=== PATIENT | male | born 1940 | race Two or more races ===

== ENCOUNTER 2017-08-07 09:50 | Emergency (ER) | payer OTHER ==
[~2017-08-07] VITALS: Ht 160 cm; Wt 56.2 kg
[2017-08-07 11:28] VITALS: BP 121/68
== END 2017-08-07 11:54 | disposition home or self-care (01) ==
LOC: ER 10:00
DX: S16.1XXA Strain of muscle, fascia and tendon at neck level, initial encounter (principal); R51 Headache; W20.8XXA Other cause of strike by thrown, projected or falling object, initial encounter; Y93.89 Activity, other specified; Y92.89 Other specified places as the place of occurrence of the external cause; Y99.8 Other external cause status
CPT/HCPCS: 70450; 72040; 93005

== ENCOUNTER 2017-08-10 08:38 | Emergency (ER) | payer OTHER ==
[~2017-08-10] VITALS: Ht 160 cm; Wt 55.8 kg
[2017-08-10 09:20] VITALS: BP 142/70
== END 2017-08-10 09:38 | disposition home or self-care (01) ==
LOC: ER 08:38
DX: S09.90XA Unspecified injury of head, initial encounter (principal); W20.8XXA Other cause of strike by thrown, projected or falling object, initial encounter; Y93.89 Activity, other specified; Y92.89 Other specified places as the place of occurrence of the external cause; Y99.8 Other external cause status

== ENCOUNTER 2024-10-10 10:56 | Inpatient (IN) | payer OTHER, MEDICAID ==
[~2024-10-10] VITALS: Ht 158.8 cm; Wt 59.4 kg
--- NOTE | 2024-10-10 12:44 | ED.PDOC ---
SOB-HPI HPI Comments 84-year-old male brought in by EMS from home complaining of generalized we akness. Patient is a difficult historian, stating I do not feel good. He states he was hospitalized in [place] about a month ago with similar symptoms, however can not provide any diagnosis. States for the last month he has had body aches, chills, fever, dry cough and difficulty breathing making it difficult for him to sleep at night. He denies any chest pain, abdominal pain, nausea, vomiting, diarrhea or dysuria. Chief Complaint: General Weakness Time Seen by MD: 11:32 Primary Care Provider: SUSIE Reviewed notes: Nurses Notes Information Source: Patient, Emergency Med Personnel Mode of Arrival: EMS Past Medical History PAST MEDICAL HISTORY: Denies Surgical History: Denies all surgeries Family History Family History: Unknown Social History Smoker: Non-Smoker Alcohol: Denies ETOH Use Drugs: Denies Drug Use Lives In: Home All Other Systems: Reviewed and Negative (Comprehensive systems review obtained and negative except for what is stated in the HPI.) Physical Exam General Appearance: No Apparent Distress HEENT: Other (Unremarkable) Neck: Full Range of Motion, Normal Inspection Respiratory: Decreased Breath Sounds, No Accessory Muscle Use, No Respiratory Distress Cardiovascular: No Edema, No JVD, Regular Rate/Rhythm Breast Exam: Deferred Gastrointestinal: Non Tender, Soft Genitalia: Deferred Pelvic: Deferred Rectal: Deferred Extremities: Normal inspection, Normal range of motion, Non-tender, No pedal edema Neurologic: Alert (Oriented x4), Normal Affect, Normal Mood, Other (Ambulatory. No gross focal deficit.) Cerebellar Function: NOT DONE Reflexes: NOT DONE Skin: Dry, Normal Color, Warm Lymphatic: NOT DONE EKG EKG : Comments Sinus rhythm, rate 77, normal intervals, left axis deviation, normal QRS, nonspecific T changes. Was a procedure done? Was a procedure done?: No Differential Dx Differential Diagnosis: Asthma, Bronchitis, CHF, COPD, Myocardial infarction, Panic Attack, Pneumonia, Pulmonary Embolism, Respiratory Distress, URI X-Ray, Labs, Meds, VS Vital Signs Date Time Temp Pulse Resp B/P (MAP) Pulse Ox O2 Delivery O2 Flow Rate FiO2 10/10/24 17:18 97.7 60 9 121/73 (89) 97 97.7 10/10/24 17:18 60 19 97 Room Air 10/10/24 13:11 89 20 93 Room Air* 0 21 10/10/24 12:54 16 89 Room Air* 0 21 10/10/24 11:05 77 10/10/24 11:04 98.1 92 18 120/73 (89) 99 Lab Test 10/10/24 17:39 10/10/24 17:30 10/10/24 14:30 10/10/24 14:15 Range/Units Lactic Acid Level 3.3 *H 3.8 *H 0.4-2.0 mmol/L Troponin I High Sensitivity 27 30 </=54 ng/L Influenza Type A Antigen Negative Negative Influenza Type B Antigen Negative Negative SARS-CoV-2 Antigen (Rapid) Negative NEGATIVE White Blood Count 9.2 4.4-10.8 10^3/uL Red Blood Count 4.88 4.5-5.90 10^6/uL Hemoglobin 13.3 L 13.5-17.5 g/dL Hematocrit 41.3 41.0-53.0 % Mean Corpuscular Volume 84.6 80.0-100.0 fL Mean Corpuscular Hemoglobin 27.4 L 28.0-32.0 pg Mean Corpuscular Hemoglobin Concent 32.4 32.0-36.0 g/dL Red Cell Distribution Width 15.5 H 11.8-14.3 % Platelet Count 88 L 140-450 10^3/uL Mean Platelet Volume 10.5 6.9-10.8 fL Neutrophils (%) (Auto) 89.2 H 37.0-80.0 % Lymphocytes (%) (Auto) 6.7 L 10.0-50.0 % Monocytes (%) (Auto) 4.0 0.0-12.0 % Eosinophils (%) (Auto) 0.0 0.0-7.0 % Basophils (%) (Auto) 0.1 0.0-2.0 % Neutrophils # (Auto) 8.2 1.6-8.6 10 ^3/uL Lymphocytes # (Auto) 0.6 0.4-5.4 10 ^3/uL Monocytes # (Auto) 0.4 0-1.3 10 ^3/uL Eosinophils # (Auto) 0 0-0.8 10 ^3/uL Basophils # (Auto) 0 0-0.2 10 ^3/uL Nucleated Red Blood Cells 0.1 % Sodium Level 131 L 136-145 mmol/L Potassium Level 3.5 3.5-5.1 mmol/L Chloride Level 97 L 98-107 mmol/L Carbon Dioxide Level 21 20-31 mmol/L Anion Gap 13 5-15 Blood Urea Nitrogen 27 H 9-23 mg/dL Creatinine 1.64 H 0.700-1.30 mg/dL Glomerular Filtration Rate Calc 41 >90 mL/min BUN/Creatinine Ratio 16.5 10.0-20.0 Serum Glucose 219 H 74-106 mg/dL Calcium Level 8.9 8.7-10.4 mg/dL B-Type Natriuretic Peptide 103.87 0-100 pg/mL Current Medications Medications (Trade) Dose Ordered Sig/Sherron Route Start Time Stop Time Status Last Admin Albuterol (Ventolin Medneb) 2.5 mg ONCE ONCE NEB 10/10/24 12:45 10/10/24 12:46 DC 10/10/24 13:06 Ipratropium [place] (Atrovent Medneb) 0.5 mg ONCE ONCE NEB 10/10/24 12:45 10/10/24 12:46 DC 10/10/24 13:06 Ceftriaxone Sodium 50 ml @ 100 mls/hr ONCE ONCE IV 10/10/24 12:45 10/10/24 13:14 DC 10/10/24 13:04 Azithromycin 250 ml @ 125 mls/hr ONCE ONCE IV 10/10/24 12:45 10/10/24 14:44 DC 10/10/24 13:05 Acetaminophen (Tylenol Tablet Or Capsule) 1,000 mg ONCE ONCE PO 10/10/24 12:45 10/10/24 12:46 DC 10/10/24 13:04 Sodium Chloride 1,000 ml @ 1,000 mls/hr Q1H ONCE IV 10/10/24 16:30 10/10/24 17:29 DC 10/10/24 16:33 [place] [id number] Ph: [phone] DIAGNOSTIC IMAGING Diagnostic Imaging Report : [id number] Signed PATIENT: PABLO ANDRES ACCT: [id number] UNIT: [id number] : 1940 LOC: ER ROOM / BED: / AGE / SEX: 84 / M ADM STATUS: REG ER SERVICE 1240 ORDERING PHYSICIAN: JEREMY YOUNG MD PROCEDURE(s): CXRP - CHEST PORTABLE REASON: sob cough fever ORDER NUMBER(s): [id number], ACCESSION NUMBER(s): [id number] XY CHEST PORTABLE, HISTORY: sob cough fever COMPARISON: None None TECHNICAL DATA: 1 view of the chest was obtained. FINDINGS: Lines and tubes: A cardiac pacer is seen. Cardiomediastinal silhouette: normal Pulmonary vasculature: normal Lung expansion: normal Lung airspace: normal Lung interstitium: normal Pleura: normal Pneumothorax: no Bones: Unremarkable Other: no IMPRESSION: No acute intrathoracic abnormality. ATED BY: CHARANJIT SENIOR MD DICTATED DATE/TIME: 10/10/241335 SIGNED BY: CHARANJIT SENIOR MD SIGNED DATE/TIME: 10/10/241335 CC: X-Ray, Labs, Meds, VS Comment 84-year-old male with no significant past medical history brought in by EMS for evaluation of generalized weakness, cough, shortness of breath, body aches, and malaise. Vitals unremarkable Exam remarkable for diminished breath sounds Rhythm strip independently interpreted by me: Sinus rhythm, rate 77, no ectopy. Chest x-ray unremarkable CBC remarkable for platelets of 88 , metabolic panel remarkable for sodium 131, chloride 97, BUN 27, creatinine 1.64, glucose 219, BNP and troponin negative, influenza and COVID negative, lactate 3.8, repeat 3.3 Patient treated with the following in the ED: 1 L 0.9 normal saline IV bolus, Rocephin 1 g IV, Zithromax 500 mg IV albuterol 2.5 mg/Atrovent 0.5 mg nebulized On re-evaluation, patient is resting comfortably with stable vitals. He denies shortness of breath, and oxygen saturation is normal on room air. Plan is to admit the patient for IV hydration, lactate trend, electrolyte correction, and respiratory support as needed Time of 1ST Reevaluation: 14:30 Reevaluation 1ST: Improved Patient Education/Counseling: Diagnosis, Treatment Family Education/Counseling: No Family Present Departure 1 Departure Time of Disposition: 16:16 Impression: Primary Impression: Generalized weakness Additional Impressions: Acute kidney injury Elevated lactic acid level Bronchitis Disposition: 09 ADMITTED INPATIENT Admit to: Med Surg Condition: Guarded Critical Care Note Critical Care Time?: No Stability Stability form required: No Heart Score Heart Score: Heart Score Response (Comments) Value History N/A 0 EKG N/A 0 Age N/A 0 Risk Factors N/A 0 Troponin N/A 0 Total 0 I personally scribed for JEREMY YOUNG MD ([email or web address]) on 10/10/24 at 13:48. Electronically submitted by Nyasia Allen ([email or web address]). JEREMY YOUNG MD Oct 10, 2024 12:44
[2024-10-10] MEDS: cefTRIAXone 1GM/50ML D5W 50 ML IV ONE (13:04)
[2024-10-10] MEDS: ACETAMINOPHEN 500 MG TAB or CAP PO ONE (13:04)
[2024-10-10] MEDS: AZITHROMYCIN 500MG/ 250ML 250 ML IV ONE (13:05)
[2024-10-10] MEDS: IPRATROPIUM BROM 0.5 MG/2.5ML INH SOL NEB ONE (13:06)
[2024-10-10] MEDS: ALBUTEROL SULF 2.5 MG/0.5ML(0.5%) NEB SOLN NEB ONE (13:06)
[2024-10-10 13:11] VITALS: PULSE 89; RESP 20; O2SAT 93
--- NOTE | 2024-10-10 13:38 | DVH ---
XY CHEST PORTABLE, HISTORY: sob cough fever COMPARISON: None None TECHNICAL DATA: 1 view of the chest was obtained. FINDINGS: Lines and tubes: A cardiac pacer is seen. Cardiomediastinal silhouette: normal Pulmonary vasculature: normal Lung expansion: normal Lung airspace: normal Lung interstitium: normal Pleura: normal Pneumothorax: no Bones: Unremarkable Other: no IMPRESSION: No acute intrathoracic abnormality.
[2024-10-10 14:58] LABS: Basophils # (auto) 0 10 ^3/uL (0-0.2); Basophils % (auto) 0.1 % (0.0-2.0); Eosinophils # (auto) 0 10 ^3/uL (0-0.8); Hematocrit 41.3 % (41.0-53.0); Hemoglobin 13.3 g/dL (13.5-17.5); Lymphocytes # (auto) 0.6 10 ^3/uL (0.4-5.4); Lymphocytes % (auto) 6.7 % (10.0-50.0); Mean Corpuscular Hemoglobin 27.4 pg (28.0-32.0); Mean Corpuscular Hgb Conc. 32.4 g/dL (32.0-36.0); Mean Corpuscular Volume 84.6 fL (80.0-100.0); Monocytes # (auto) 0.4 10 ^3/uL (0-1.3); Neutrophils # (auto) 8.2 10 ^3/uL (1.6-8.6); Neutrophils % (auto) 89.2 % (37.0-80.0); Nucleated Red Blood Cells % 0.1 %; Platelet Count (auto) 88 10^3/uL (140-450); Red Blood Cells 4.88 10^6/uL (4.5-5.90); Red Cell Distribution Width 15.5 % (11.8-14.3); White Blood Cell 9.2 10^3/uL (4.4-10.8)
[2024-10-10 15:19] LABS: Anion Gap 13 (5-15); Carbon Dioxide 21 mmol/L (20-31); Potassium 3.5 mmol/L (3.5-5.1)
[2024-10-10 15:20] LABS: Calcium 8.9 mg/dL (8.7-10.4)
[2024-10-10 15:25] LABS: BUN/Creatinine Ratio 16.5 (10.0-20.0)
[2024-10-10 15:33] LABS: Blood Urea Nitrogen 27 mg/dL (9-23); Chloride 97 mmol/L (98-107); Glucose 219 mg/dL (74-106); Sodium 131 mmol/L (136-145)
[2024-10-10 15:37] LABS: Lactic Acid w/Reflex 3.8 mmol/L (0.4-2.0)
[2024-10-10] MEDS: SODIUM CHLORIDE 0.9% 1,000 ML IV ONE (16:33)
--- NOTE | 2024-10-10 17:44 | ECG ---
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
[2024-10-10] MEDS ORDERED: ONDANSETRON HCL 4 MG/2 ML VIAL IV PRN (18:45)
[2024-10-10 18:46] LABS: COVID19 ANTIGEN SOFIA FIA NEGATIVE (NEGATIVE)
[2024-10-10 18:47] LABS: Rapid Influenza A Negative (Negative); Rapid Influenza B Negative (Negative)
[2024-10-10 20:00] VITALS: BP 121/73; PULSE 60; RESP 18; TEMP 97.7; O2SAT 97
--- NOTE | 2024-10-10 21:08 | DVHHP2 ---
History of Present Illness Reason for Visit: Generalized weakness History of Present Illness 84-year-old male presents for evaluation of generalized weakness. Patient reports nonspecific symptoms. He states does having a intermittent cough for the past two weeks. Reports weakness. Denies respiratory or cardiac c omplaints. No abdominal pain. No other acute symptoms. Past Medical History Hypertension Past Surgical History Denies Family History Noncontributory Smoke: No ALCOHOL: none Drugs: None Lives: with Family Review of Systems Review of Systems Review of systems are currently negative otherwise addressed in HPI. Allergies: Coded Allergies: NO KNOWN ALLERGIES (Unverified , 08/07/17) Medications Current Medications Medications Dose Ordered Sig/Sherron Route Start Time Stop Time Status Last Admin Dose Admin Albuterol 2.5 mg Q6HPRN PRN NEB 10/10/24 18:45 Ceftriaxone Sodium 50 ml @ 100 mls/hr DAILY@09 IV 10/11/24 09:00 Nifedipine 30 mg DAILY PO 10/11/24 10:00 Ondansetron HCl 4 mg Q4HP PRN IV 10/10/24 18:45 Acetaminophen 650 mg Q6HP PRN PO 10/10/24 18:45 Exam Vital Signs Vital Signs Date Time Temp Pulse Resp B/P (MAP) Pulse Ox O2 Delivery O2 Flow Rate FiO2 10/10/24 20:00 97.7 60 18 121/73 97 21 97.7 10/10/24 20:00 Room Air 10/10/24 20:00 0 Exam Gen: 84-year-old male in mild distress Skin: Warm, dry, normal color and texture, no rash. HEENT: Normocephalic atraumatic, mucous membranes moist and pink. Neck: Cervical and supraclavicular nodes normal without enlargement, trachea is midline, thyroid gland is normal without masses. Pulmonary: Right-sided rhonchi Cardiac: Regular rate and rhythm. No murmur Abdomen: Soft, nontender, nondistended, bowel sounds present all 4 quadrants, no guarding, no rigidity, no organomegaly. Extremities: No cyanosis, clubbing, no edema Neuro: Cranial nerves II through XII grossly intact, normal affect and speech, no focal motor deficits. Labs/Xrays ORDERING PHYSICIAN: JEREMY YOUNG MD PROCEDURE(s): CXRP - CHEST PORTABLE REASON: sob cough fever ORDER NUMBER(s): [id number], ACCESSION NUMBER(s): [id number] XY CHEST PORTABLE, HISTORY: sob cough fever COMPARISON: None None TECHNICAL DATA: 1 view of the chest was obtained. FINDINGS: Lines and tubes: A cardiac pacer is seen. Cardiomediastinal silhouette: normal Pulmonary vasculature: normal Lung expansion: normal Lung airspace: normal Lung interstitium: normal Pleura: normal Pneumothorax: no Bones: Unremarkable Other: no IMPRESSION: No acute intrathoracic abnormality. ATED BY: CHARANJIT SENIOR MD DICTATED DATE/TIME: 10/10/24 1336 Labs Test 10/10/24 19:46 10/10/24 17:39 10/10/24 17:30 10/10/24 14:15 Range/Units Troponin I High Sensitivity 25 </=54 ng/L Lactic Acid Level 3.3 *H 0.4-2.0 mmol/L Influenza Type A Antigen Negative Negative Influenza Type B Antigen Negative Negative SARS-CoV-2 Antigen (Rapid) Negative NEGATIVE White Blood Count 9.2 4.4-10.8 10^3/uL Red Blood Count 4.88 4.5-5.90 10^6/uL Hemoglobin 13.3 L 13.5-17.5 g/dL Hematocrit 41.3 41.0-53.0 % Mean Corpuscular Volume 84.6 80.0-100.0 fL Mean Corpuscular Hemoglobin 27.4 L 28.0-32.0 pg Mean Corpuscular Hemoglobin Concent 32.4 32.0-36.0 g/dL Red Cell Distribution Width 15.5 H 11.8-14.3 % Platelet Count 88 L 140-450 10^3/uL Mean Platelet Volume 10.5 6.9-10.8 fL Neutrophils (%) (Auto) 89.2 H 37.0-80.0 % Lymphocytes (%) (Auto) 6.7 L 10.0-50.0 % Monocytes (%) (Auto) 4.0 0.0-12.0 % Eosinophils (%) (Auto) 0.0 0.0-7.0 % Basophils (%) (Auto) 0.1 0.0-2.0 % Neutrophils # (Auto) 8.2 1.6-8.6 10 ^3/uL Lymphocytes # (Auto) 0.6 0.4-5.4 10 ^3/uL Monocytes # (Auto) 0.4 0-1.3 10 ^3/uL Eosinophils # (Auto) 0 0-0.8 10 ^3/uL Basophils # (Auto) 0 0-0.2 10 ^3/uL Nucleated Red Blood Cells 0.1 % Sodium Level 131 L 136-145 mmol/L Potassium Level 3.5 3.5-5.1 mmol/L Chloride Level 97 L 98-107 mmol/L Carbon Dioxide Level 21 20-31 mmol/L Anion Gap 13 5-15 Blood Urea Nitrogen 27 H 9-23 mg/dL Creatinine 1.64 H 0.700-1.30 mg/dL Glomerular Filtration Rate Calc 41 >90 mL/min BUN/Creatinine Ratio 16.5 10.0-20.0 Serum Glucose 219 H 74-106 mg/dL Calcium Level 8.9 8.7-10.4 mg/dL B-Type Natriuretic Peptide 103.87 0-100 pg/mL Assessment/Plan Assessment/Plan Assessment Acute respiratory distress acute bronchitis Acute kidney injury Hyperglycemia Hypertension Generalized weakness Admit the patient to Med surge to the hospitalist Med anthony Warren Resume home medications Continue treatment per orders. Plan discussed with: Patient My Orders Orders - ESPERANZA LAUREANO Procedure Category Date Status Time Albuterol Medneb PHA 10/10/24 In Process (Ventolin Medneb) 18:45 Ceftriaxone 1gm/50ml PHA 10/11/24 In Process D5w (Rocephin) 09:00 Nifedipine Er PHA 10/11/24 In Process (Procardia Xl 10:00 Basic Metabolic Panel LAB 10/11/24 Verified 04:00 Admit ADMIT 10/10/24 Transmitted 18:45 Ondansetron Hcl PHA 10/10/24 In Process (Zofran) 18:45 Complete Blood Count LAB 10/11/24 Verified 04:00 Cardiac DIET 10/11/24 Transmitted Diet-2gna,Lofat,Lochol Breakfast Condition: Stable LIBBY 10/10/24 In Process 18:45 Acetaminophen Tablet PHA 10/10/24 In Process (Tylenol Tablet) 18:45 Bedrest With Bathroom LIBBY 10/10/24 In Process Privileg 18:45 Date of Service: Oct 10, 2024 Billing Provider: ESPERANZA LAUREANO Common Visit Codes: [id number] INP/OBS CARE (MOD) ESPERANZA LAUREANO Oct 10, 2024 21:08
[2024-10-10 22:21] VITALS: BP 141/79; PULSE 74; RESP 19; TEMP 98; O2SAT 93; O2SAT 94
[2024-10-10] MEDS ORDERED: LOSA-534 PO (23:23)
[2024-10-11] VITALS (10 sets, daily range): BP systolic 102–128; BP diastolic 52–89; PULSE 60–71; RESP 16–20; TEMP 98–98.7; O2SAT 90–95
[2024-10-11 06:59] LABS: Basophils # (auto) 0 10 ^3/uL (0-0.2); Basophils % (auto) 0.1 % (0.0-2.0); Eosinophils # (auto) 0 10 ^3/uL (0-0.8); Hematocrit 37.7 % (41.0-53.0); Hemoglobin 12.1 g/dL (13.5-17.5); Lymphocytes % (auto) 11.5 % (10.0-50.0); Mean Corpuscular Hemoglobin 26.9 pg (28.0-32.0); Mean Corpuscular Hgb Conc. 32.2 g/dL (32.0-36.0); Mean Corpuscular Volume 83.4 fL (80.0-100.0); Monocytes # (auto) 0.5 10 ^3/uL (0-1.3); Monocytes % (auto) 5.2 % (0.0-12.0); Neutrophils # (auto) 7.2 10 ^3/uL (1.6-8.6); Neutrophils % (auto) 83.2 % (37.0-80.0); Nucleated Red Blood Cells % 0.1 %; Platelet Count (auto) 81 10^3/uL (140-450); Red Blood Cells 4.52 10^6/uL (4.5-5.90); Red Cell Distribution Width 15.3 % (11.8-14.3); White Blood Cell 8.6 10^3/uL (4.4-10.8)
[2024-10-11 07:09] LABS: Chloride 103 mmol/L (98-107); Potassium 3.6 mmol/L (3.5-5.1)
[2024-10-11 07:10] LABS: Anion Gap 11 (5-15); Calcium 8.9 mg/dL (8.7-10.4); Carbon Dioxide 22 mmol/L (20-31)
[2024-10-11 07:15] LABS: BUN/Creatinine Ratio 18.2 (10.0-20.0); Glucose 76 mg/dL (74-106)
[2024-10-11 07:17] LABS: Blood Urea Nitrogen 30 mg/dL (9-23)
[2024-10-11 07:26] LABS: Sodium 136 mmol/L (136-145)
[2024-10-11] MEDS: cefTRIAXone 1GM/50ML D5W 50 ML IV SCH (08:32)
[2024-10-11] MEDS: ACETAMINOPHEN 325 MG TAB PO PRN (08:40)
[2024-10-11] MEDS: NIFEdipine ER 30 MG TAB PO SCH (08:41)
[2024-10-11] MEDS: SODIUM CHLORIDE 0.9% 1,000 ML IV SCH (11:30)
--- NOTE | 2024-10-11 11:37 | DVHPN2 ---
Subjective 84-year-old male with a history of hypertension comes here with chief complaint of generalized weakness Chest x-ray was negative COVID and influenza were negative Creatinine was 1.6 and platelets are 81 and lactic acid is 3.3 Changes from previous H/P or p: Changes Objective Vitals Vital Signs Date Time Temp Pulse Resp B/P (MAP) Pulse Ox O2 Delivery O2 Flow Rate FiO2 10/11/24 09:20 94 Room Air 0.0 10/11/24 09:20 21 10/11/24 09:00 98.0 60 16 117/61 (79) 98.0 Intake/Output Intake and Output 10/11/24 07:00 Intake Total 300 ml Output Total 0 ml Balance 300 ml Intake Oral 0 ml IV Total 300 ml Output Urine Total 0 ml General Appearance: Alert, Oriented X3, Cooperative, No acute distress Lungs: Clear to auscultation, Normal air movement Cardiovascular: Regular rate, Normal S1, Normal S2 Abdomen: Normal bowel sounds, Soft, No tenderness Extremities: No edema Medications Current Medications Medications Dose Ordered Sig/Sherron Route Start Time Stop Time Status Last Admin Dose Admin Albuterol 2.5 mg Q6HPRN PRN NEB 10/10/24 18:45 Ceftriaxone Sodium 50 ml @ 100 mls/hr DAILY@09 IV 10/11/24 09:00 10/11/24 08:32 100 MLS/HR Nifedipine 30 mg DAILY PO 10/11/24 10:00 10/11/24 08:41 30 MG Ondansetron HCl 4 mg Q4HP PRN IV 10/10/24 18:45 Acetaminophen 650 mg Q6HP PRN PO 10/10/24 18:45 10/11/24 08:40 650 MG Laboratory Results Laboratory Tests 10/11/24 06:16 Chemistry Test 10/10/24 14:15 10/11/24 06:16 Calcium Level 8.9 mg/dL (8.7-10.4) 8.9 mg/dL (8.7-10.4) Cardiac Markers Test 10/10/24 14:15 B-Type Natriuretic Peptide 103.87 pg/mL (0-100) HgA1c, TSH Test 10/10/24 21:23 Hemoglobin A1c 5.9 % A1C (<5.7) H Assessment/Plan Assessment/Plan Generalized weakness most likely due to dehydration Dehydration Acute kidney injury most likely due to vasomotor nephropathy Rule out chronic kidney disease Lactic acidosis Hyponatremia Hypertension Hard of hearing Plan Start IV fluids with normal saline Give IV antibiotics Physical therapy Monitor in the hospital 1 more day Monitor the kidney function closely Plan discussed with: Patient, Spouse My Orders Orders - GARLAND MIDDLETON MD Procedure Category Date Status Time NS PHA 10/11/24 Transmitted 11:30 Pt Request For Service PT 10/11/24 Transmitted 11:25 Complete Blood Count LAB 10/12/24 Verified 04:00 Comprehensive LAB 10/12/24 Verified Metabolic Panel 04:00 Magnesium LAB 10/12/24 Verified 04:00 Date of Service: Oct 11, 2024 Billing Provider: GARLAND MIDDLETON MD Common Visit Codes: NOT BILLABLE GARLAND MIDDLETON MD Oct 11, 2024 11:37
[2024-10-11 19:00] LABS: Urine Bacteria None Seen /hpf (None Seen)
[2024-10-11 19:16] LABS: Urine Blood Negative /uL (Negative); Urine Clarity Clear (Clear); Urine Color Yellow (Yellow); Urine Protein, UAD 1+ (Negative); Urine Specific Gravity 1.023 (1.001-1.035); Urine Squamous Epithelial Cell None Seen /hpf (<5); Urine Urobilinogen Normal (Negative); Urine WBC 2 /HPF (0-3); Urine pH 5.5 (5.0-9.0)
[2024-10-12] VITALS (8 sets, daily range): BP systolic 100–122; BP diastolic 57–66; PULSE 71–83; RESP 16–20; TEMP 97.4–99.2; O2SAT 90–97
[2024-10-12 05:55] LABS: Basophils # (auto) 0 10 ^3/uL (0-0.2); Basophils % (auto) 0.1 % (0.0-2.0); Eosinophils # (auto) 0 10 ^3/uL (0-0.8); Hematocrit 35.6 % (41.0-53.0); Hemoglobin 11.7 g/dL (13.5-17.5); Lymphocytes # (auto) 0.5 10 ^3/uL (0.4-5.4); Lymphocytes % (auto) 7.9 % (10.0-50.0); Mean Corpuscular Hemoglobin 27.2 pg (28.0-32.0); Mean Corpuscular Hgb Conc. 32.8 g/dL (32.0-36.0); Mean Corpuscular Volume 83.1 fL (80.0-100.0); Monocytes # (auto) 0.2 10 ^3/uL (0-1.3); Monocytes % (auto) 3.8 % (0.0-12.0); Neutrophils # (auto) 5.5 10 ^3/uL (1.6-8.6); Neutrophils % (auto) 88.2 % (37.0-80.0); Nucleated Red Blood Cells % 0.1 %; Platelet Count (auto) 81 10^3/uL (140-450); Red Blood Cells 4.29 10^6/uL (4.5-5.90); Red Cell Distribution Width 15.2 % (11.8-14.3); White Blood Cell 6.2 10^3/uL (4.4-10.8)
[2024-10-12 06:21] LABS: Alanine Aminotransferase 30 U/L (7-40); Alkaline Phosphatase 48 U/L (46-116); Anion Gap 11 (5-15); BUN/Creatinine Ratio 18.5 (10.0-20.0); Calcium 8.9 mg/dL (8.7-10.4); Chloride 106 mmol/L (98-107); Glucose 89 mg/dL (74-106); Magnesium 2.2 mg/dL (1.6-2.6); Sodium 136 mmol/L (136-145)
[2024-10-12 06:23] LABS: Albumin 3.6 g/dL (3.2-4.8); Bilirubin, Total 0.4 mg/dL (0.2-1.0)
[2024-10-12 06:33] LABS: Aspartate Aminotransferase 47 U/L (13-40); Blood Urea Nitrogen 29 mg/dL (9-23); Carbon Dioxide 19 mmol/L (20-31); Potassium 3.4 mmol/L (3.5-5.1); Total Protein 5.6 g/dL (5.7-8.2)
[2024-10-12] MEDS: ALBUTEROL SULF 2.5 MG/0.5ML(0.5%) NEB SOLN NEB PRN (09:51)
[2024-10-12] MEDS: POTASSIUM CHL 20 Meq TABLET PO ONE (11:03)
--- NOTE | 2024-10-12 11:29 | DVHDS2 ---
Discharge Summary Date of Admission Oct 10, 2024 at 18:45 Date of Discharge: Oct 12, 2024 Labs/Diagnostic Data: Laboratory Results Test 10/12/24 04:32 10/11/24 18:25 10/10/24 21:23 10/10/24 19:46 White Blood Count 6.2 10^3/uL (4.4-10.8) Red Blood Count 4.29 10^6/uL (4.5-5.90) Hemoglobin 11.7 g/dL (13.5-17.5) Hematocrit 35.6 % (41.0-53.0) Mean Corpuscular Volume 83.1 fL (80.0-100.0) Mean Corpuscular Hemoglobin 27.2 pg (28.0-32.0) Mean Corpuscular Hemoglobin Concent 32.8 g/dL (32.0-36.0) Red Cell Distribution Width 15.2 % (11.8-14.3) Platelet Count 81 10^3/uL (140-450) Mean Platelet Volume 9.8 fL (6.9-10.8) Neutrophils (%) (Auto) 88.2 % (37.0-80.0) Lymphocytes (%) (Auto) 7.9 % (10.0-50.0) Monocytes (%) (Auto) 3.8 % (0.0-12.0) Eosinophils (%) (Auto) 0.0 % (0.0-7.0) Basophils (%) (Auto) 0.1 % (0.0-2.0) Neutrophils # (Auto) 5.5 10 ^3/uL (1.6-8.6) Lymphocytes # (Auto) 0.5 10 ^3/uL (0.4-5.4) Monocytes # (Auto) 0.2 10 ^3/uL (0-1.3) Eosinophils # (Auto) 0 10 ^3/uL (0-0.8) Basophils # (Auto) 0 10 ^3/uL (0-0.2) Nucleated Red Blood Cells 0.1 % Sodium Level 136 mmol/L (136-145) Potassium Level 3.4 mmol/L (3.5-5.1) Chloride Level 106 mmol/L (98-107) Carbon Dioxide Level 19 mmol/L (20-31) Anion Gap 11 (5-15) Blood Urea Nitrogen 29 mg/dL (9-23) Creatinine 1.57 mg/dL (0.700-1.30) Glomerular Filtration Rate Calc 43 mL/min (>90) BUN/Creatinine Ratio 18.5 (10.0-20.0) Serum Glucose 89 mg/dL (74-106) Calcium Level 8.9 mg/dL (8.7-10.4) Magnesium Level 2.2 mg/dL (1.6-2.6) Total Bilirubin 0.4 mg/dL (0.2-1.0) Aspartate Amino Transferase (AST) 47 U/L (13-40) Alanine Aminotransferase (ALT) 30 U/L (7-40) Alkaline Phosphatase 48 U/L (46-116) Total Protein 5.6 g/dL (5.7-8.2) Albumin 3.6 g/dL (3.2-4.8) Urine Color Yellow (Yellow) Urine Clarity Clear (Clear) Urine pH 5.5 (5.0-9.0) Urine Specific [place] 1.023 (1.001-1.035) Urine Protein 1+ (Negative) Urine Ketones Negative (Negative) Urine Blood Negative /uL (Negative) Urine Nitrite Negative (Negative) Urine Bilirubin Negative (Negative) Urine Urobilinogen Normal mg/dL (Negative) Urine Leukocyte Esterase Negative /uL (Negative) Urine RBC <1 /hpf (0 - 3) Urine Microscopic WBC 2 /HPF (0-3) Urine Squamous Epithelial Cells None seen /hpf (<5) Urine Bacteria None seen /hpf (None Seen) Urine Glucose Normal mg/dL (Normal) Hemoglobin A1c 5.9 % A1C (<5.7) Troponin I High Sensitivity 25 ng/L (</=54) Test 10/10/24 17:39 10/10/24 17:30 10/10/24 14:15 Lactic Acid Level 3.3 mmol/L (0.4-2.0) Influenza Type A Antigen Negative (Negative) Influenza Type B Antigen Negative (Negative) SARS-CoV-2 Antigen (Rapid) Negative (NEGATIVE) B-Type Natriuretic Peptide 103.87 pg/mL (0-100) Other Laboratory Tests 10/12/24 04:32 Brief Hx & Hospital Course: Final diagnoses: Generalized weakness most likely due to dehydration Dehydration Acute kidney injury most likely due to vasomotor nephropathy Chronic kidney disease Lactic acidosis Hyponatremia Hypertension Hard of hearing Hypokalemia 84-year-old male who was admitted for fatigue and altered level of consciousness and generalized weakness His blood pressure was slightly low with slightly elevated lactic acid however his workup was negative including a normal UA and no pneumonia He was given IV fluids overnight and he is doing well He is asymptomatic and ambulating independently now No hypoxia He is doing real good on room air Patient can be discharged home No need for any new medications Follow up with his primary care physician as soon as possible Condition at Discharge: Stable Final Diagnosis/Problems List Generalized weakness most likely due to dehydration Dehydration Acute kidney injury most likely due to vasomotor nephropathy Rule out chronic kidney disease Lactic acidosis Hyponatremia Hypertension Hard of hearing Discharge Disposition: Home SNF Discharge Will this Physician continue t: No Discharge Statement: "Patient was advised to return to the ER or call 911 if any headaches, dizziness, shortness of breath, chest pain, abdominal pain, bleeding, fevers, or worsening of medical condition. Patient was counseled about treatment plan, medications, possible side effects, patientverbalized understanding. All questions were answered to the best of my ability. This discharge took greater then 30 minutes in planning, reviewing documentation, counseling the patient, and discussing with other team members." ASSESSMENT ASSESSMENT Assessment Date of Service: Oct 12, 2024 Billing Provider: GARLAND MIDDLETON MD Common Visit Codes: NOT BILLABLE GARLAND MIDDLETON MD Oct 12, 2024 11:29
== END 2024-10-12 13:15 | disposition home or self-care (01) | DRG 640 ==
LOC: EDBD 10:56 → ER 10:56 → OVERFLOW 18:45 → WEST WING 18:49
PROVIDERS: ADMIT Internal Medicine Geriatric Medicine; ATTEND Internal Medicine Geriatric Medicine
DX: E86.0 Dehydration (principal); N17.0 Acute kidney failure with tubular necrosis; E87.20 Acidosis, unspecified; J20.9 Acute bronchitis, unspecified; E87.1 Hypo-osmolality and hyponatremia; R73.9 Hyperglycemia, unspecified; E87.6 Hypokalemia; I12.9 Hypertensive chronic kidney disease with stage 1 through stage 4 chronic kidney disease, or unspecified chronic kidney disease; Z20.822 Contact with and (suspected) exposure to COVID-19; N18.9 Chronic kidney disease, unspecified; Z79.2 Long term (current) use of antibiotics; Z79.1 Long term (current) use of non-steroidal anti-inflammatories (NSAID); Z79.899 Other long term (current) drug therapy
CPT/HCPCS: 36415; 71045; 80048; 80053; 81001; 83036; 83605; 83735; 83880; 84484; 85025; 87040; 87426; 87804; 93005; 94640; 96361; 96365; 96368; 97163; G0378